=== PATIENT | female | born 1985 | race Caucasian/White ===

== ENCOUNTER → 2020-05-26 18:29 | Outpatient (CLI) | payer OTHER, SELFPAY ==
--- NOTE | 2020-05-26 18:33 | DI.RAD.S_ITS ---
PROCEDURE: XR FOOT RT MIN 3V INDICATIONS: RIGHT FOOT PAIN TECHNIQUE: 3 views of the foot were acquired. COMPARISON: None. FINDINGS: Bones: No fractures or dislocations. No suspicious bony lesions. Soft tissues: No tibiotalar joint effusion. Achilles tendon appears normal. IMPRESSION: Intact right foot. If there is continued concern for occult fracture, immobilization and reimaging in 7-10 days is recommended. Dictated by: Maira Beth M.D. on 05/26/2020 at 18:47 Approved by: Maira Beth M.D. on 05/26/2020 at 18:49
== END ==
PROVIDERS: Referring Provider Student in an Organized Health Care Education/Training Program; Visit Provider Student in an Organized Health Care Education/Training Program
DX: M79.671 Pain in right foot (principal)
CPT/HCPCS: 73630

== ENCOUNTER → 2021-06-22 16:49 | Outpatient (CLI) | payer OTHER, SELFPAY ==
[2021-06-24 08:59] LABS: RPR Screen Non Reactive (Non Reactive)
== END ==
PROVIDERS: Referring Provider Dermatology; Visit Provider Dermatology
DX: R21 Rash and other nonspecific skin eruption (principal)
CPT/HCPCS: 36415; 86592

== ENCOUNTER → 2024-12-01 18:15 | Outpatient (CLI) | payer OTHER, SELFPAY ==
--- NOTE | 2024-12-01 18:25 | DI.RAD.S_ITS ---
PROCEDURE: XR SACROILIAC JOINT MIN 3V INDICATIONS: BILAT LOWER BACK PAIN TECHNIQUE: 3 views of the sacroiliac joints were acquired. COMPARISON: None. FINDINGS: Bones: No bony erosions or ankylosis. No suspicious bony lesions. No fractures. Soft tissues: Overlying bowel gas pattern is normal. No suspicious soft tissue densities. IMPRESSION: No radiographic evidence of sacroiliitis. Dictated by: Franchesca Rees M.D. on 12/02/2024 at 9:59 Approved by: Franchesca Rees M.D. on 12/02/2024 at 9:59
== END ==
PROVIDERS: Referring Provider Nurse Practitioner Family; Visit Provider Nurse Practitioner Family
DX: M54.50 Low back pain, unspecified (principal)
CPT/HCPCS: 72202